=== PATIENT | female | born 1970 ===

== ENCOUNTER 2016-11-15 19:24 | Emergency (ER) | payer OTHER ==
[2016-11-15 20:49] VITALS: BMI 24.7
[2016-11-15] MEDS ORDERED: Sodium Chloride 0.9% 1,000 ML IV STA (20:50)
[2016-11-15 20:54] VITALS: BP 110/75; PULSE 77; RESP 16; TEMP 98.2; O2SAT 99
--- NOTE | 2016-11-15 20:59 | ED PDOC ---
HPI: Abdomen Time Seen by Provider: 11/15/16 20:13 Chief Complaint (Nursing): Abdominal Pain Chief Complaint (Provider): Abdominal Pain History Per: Patient History/Exam Limitations: no limitations Onset/Duration Of Symptoms: Days (ongoing for 3 weeks) Outside of [place] travel?: No Current Symptoms Are (Timing): Still Present Severity: Moderate Location Of Pain/Discomfort: Epigastric. denies: RLQ, LLQ, Suprapubic Associated Symptoms: Nausea. denies: Vomiting, Urinary Symptoms, Other (lower abdominal pain) Exacerbating Factors: Food Additional Complaint(s): Tamika Jarrell is a 45 year old female, with a past medical history of gastritis and gallstones, who presents to the emergency department for the evaluation of epigastric abdominal pain, ongoing for 3 weeks. Pain reportedly worsens with eating. Associated nausea and seasonal allergies are currently present. Denies vomiting, urinary symptoms, or lower abdominal pain. Of note, patient's previous chart was reviewed that shows a past medical history of gastritis, which she is currently not taking any medications for. PMD: none specified Past Medical History Reviewed: Historical Data, Nursing Documentation, Vital Signs Vital Signs: Last Vital Signs Temp 98.2 F 11/15/16 20:48 Pulse 77 11/15/16 20:48 Resp 16 11/15/16 20:48 BP 110/75 11/15/16 20:48 Pulse Ox 99 11/15/16 23:55 - Medical History PMH: Gastritis, Gall Bladder Disease (gallstones) Denies: Chronic Kidney Disease - Surgical History Surgical History: No Surg Hx - Family History Family History: States: Unknown Family Hx - Home Medications Home Medications: Ambulatory Orders Medication Instructions Recorded Cephalexin [cephalexin] 500 mg PO QID #28 cap 08/21/16 Acetaminophen [Acetaminophen ER] 650 mg PO Q4 #30 tablet.er 11/15/16 Famotidine [Pepcid] 20 mg PO BID PRN #30 tab 11/15/16 Lidocaine 11 each TP DAILY #12 adh..patch 11/15/16 Pantoprazole [Protonix EC Tab] 40 mg PO DAILY #30 ect 11/15/16 - Allergies Allergies/Adverse Reactions: Allergies Allergy/AdvReac Type Severity Reaction Status Date / Time No Known Allergies Allergy Verified 07/06/15 09:13 Review of Systems ROS Statement: Except As Marked, All Systems Reviewed And Found Negative Gastrointestinal: Positive for: Nausea, Abdominal Pain (epigastric; denies lower ). Negative for: Vomiting Genitourinary Female: Negative for: Dysuria, Hematuria Physical Exam - Reviewed Nursing Documentation Reviewed: Yes Vital Signs Reviewed: Yes - Physical Exam Appears: Positive for: Non-toxic, No Acute Distress Head Exam: Positive for: ATRAUMATIC, NORMOCEPHALIC Skin: Positive for: Normal Color, Warm, Dry Eye Exam: Positive for: EOMI, PERRL, Conjunctival injection, Other (watery eyes) Cardiovascular/Chest: Positive for: Regular Rate, Rhythm. Negative for: Murmur Respiratory: Positive for: Normal Breath Sounds. Negative for: Respiratory Distress Gastrointestinal/Abdominal: Positive for: Normal Exam, Soft, Tenderness ( epigastric). Negative for: Guarding, Rebound Back: Positive for: Normal Inspection. Negative for: L CVA Tenderness, R CVA Tenderness Neurologic/Psych: Positive for: Alert, Oriented - Laboratory Results Result Diagrams: 11/15/16 21:48 11/15/16 21:48 - ECG O2 Sat by Pulse Oximetry: 99 (RA) Pulse Ox Interpretation: Normal Medical Decision Making Medical Decision Makin:13 Initial Impression: Gastritis, gallstones flareup Initial Plan: * Gallbladder & Pancreas Ultrasound * Complete Blood Count * Comprehensive Metabolic Panel * Lipase * Urine Dip * Urine * Sodium Chloride 0.9% 1,000 ml IV at 500 mls/hr * Protonix 40 mg IVP * Reglan 10 mg IVP * Reevaluation 2343: US impression: Stone impacted in the gallbladder neck. Upper normal gallbladder wall thickness. Correlation for cholecystitis recommended. Please note that a similar sized stone was seen in the gallbladder on CT dated August 25, 2015, however that CT did not show definite gallbladder wall thickening. Common bile duct 4 mm which is within normal limits. 2353: Patient feeling much better and stable for d/c. Patient no longer complaining of abdominal pain but states she has some muscular cramps in her back. Recommended lidocaine patch and tylenol as needed. Will put patient back on PPI and pepcid for gastritis. Informed patient of results of US report and instructed to f/u in clinic in 1-2 days or return to the ED with worsening of symptoms, vomiting, fever, or other concerning symptoms. Scribe Attestation: Documented by Flex Woods, acting as a scribe for Osbaldo Ziegler MD. Provider Scribe Attestation: All medical record entries made by the Scribe were at my direction and personally dictated by me. I have reviewed the chart and agree that the record accurately reflects my personal performance of the history, physical exam, medical decision making, and the department course for this patient. I have also personally directed, reviewed, and agree with the discharge instructions and disposition. Disposition - Clinical Impression Clinical Impression: Gastritis - Patient ED Disposition Is Patient to be Admitted: No Counseled Patient/Family Regarding: Studies Performed, Diagnosis, Need For Followup, Rx Given - Disposition Referrals: [facility] [Outside] Disposition: Routine/Home Disposition Time: 23:55 Condition: STABLE Prescriptions: Acetaminophen [Acetaminophen ER] 650 mg PO Q4 #30 tablet.er Famotidine [Pepcid] 20 mg PO BID PRN #30 tab PRN Reason: Abdominal Pain Lidocaine 11 each TP DAILY #12 adh..patch Pantoprazole [Protonix EC Tab] 40 mg PO DAILY #30 ect Instructions: Gastritis (ED), Muscle Spasm (ED) Print Language: INDIAN
[2016-11-15 21:53] LABS: BASO % 0.3 % (0.0-2.0); EOS # 0.2 K/uL (0.0-0.7); EOS % 2.6 % (0.0-4.0); LYMPH % 31.7 % (20.0-40.0); MEAN CELL VOLUME 90.1 fl (81.0-99.0); MEAN CORPUSCULAR HEMOGLOBIN 30.1 pg (27.0-31.0); MEAN CORPUSCULAR HGB CONC 33.4 g/dL (33.0-37.0); MEAN PLATELET VOLUME 8.6 fl (7.2-11.7); MONO # 0.3 K/uL (0.0-0.8); NEUT # 3.8 K/uL (1.8-7.0); NEUT % 60.4 % (50.0-75.0); RED CELL DISTRIBUTION WIDTH 12.9 % (11.5-14.5); WHITE BLOOD COUNT 6.3 K/uL (4.8-10.8)
[2016-11-15 22:03] LABS: ALB/GLOB RATIO 1.3 (1.0-2.1); ALKALINE PHOSPHATASE 64 U/L (38-126); ALT/SGPT 27 U/L (9-52); AST/SGOT 26 U/L (14-36); BILIRUBIN,TOTAL 0.5 mg/dl (0.2-1.3); BLOOD UREA NITROGEN 5 mg/dl (7-17); CALCIUM 9.5 mg/dL (8.4-10.2); CARBON DIOXIDE 25 mmol/L (22-30); CHLORIDE 104 mmol/L (98-107); GFR AFRICAN-AMERICAN > 60; GLUCOSE,RANDOM 111 mg/dL (65-105); LIPASE 66 U/L (23-300); POTASSIUM 3.6 MMOL/L (3.6-5.0); SODIUM 141 mmol/l (132-148); TOTAL PROTEIN 8.4 G/DL (6.3-8.2)
--- NOTE | 2016-11-15 23:44 | US ---
EXAM: US Abdomen Limited, Right Upper Quadrant CLINICAL HISTORY: 45 years old, female; Pain; Abdominal pain; Epigastric; Additional info: Epig pain, HX of gallstones TECHNIQUE: Real-time ultrasound of the right upper quadrant with image documentation. EXAM DATE/TIME: Exam ordered 11/15/2016 8:50 PM COMPARISON: CT - ABD PELVIS W/O PO OR IV CONT 08/25/2015 4:52:08 AM FINDINGS: Liver: Liver measures 14.9 cm. No intrahepatic bile duct dilation. Gallbladder: Gallbladder wall is 3 mm which is upper limit of normal. There is a gallstone in the neck of the gallbladder which is "almost non-mobile" as per system technologist to visualize the finding in real-time, this stone measures approximately 2 cm. Common bile duct: 4 mm common bile duct which is within normal limits. No stones. No dilation. Pancreas: Included portions of the pancreas with no apparent acute pathology. Right kidney: Right kidney measures 11.5 x 3.9 x 3.9 cm. No stones. No hydronephrosis. IMPRESSION: Stone impacted in the gallbladder neck. Upper normal gallbladder wall thickness. Correlation for cholecystitis recommended. Please note that a similar sized stone was seen in the gallbladder on CT dated August 25, 2015, however that CT did not show definite gallbladder wall thickening. Common bile duct 4 mm which is within normal limits.
== END 2016-11-16 00:10 | disposition home or self-care (01) ==
LOC: H.ER 19:24
DX: R10.13 Epigastric pain (principal); R11.0 Nausea

== ENCOUNTER 2016-11-17 18:28 | Emergency (ER) | payer OTHER ==
[2016-11-17 18:29] VITALS: BMI 24.7
[2016-11-17 18:46] VITALS: BP 129/78; RESP 19; TEMP 98.4; O2SAT 100
--- NOTE | 2016-11-17 19:25 | ED PDOC ---
HPI: Chest Pain Time Seen by Provider: 11/17/16 19:06 Chief Complaint (Nursing): Chest Pain Chief Complaint (Provider): Chest Pain History Per: Patient Additional Complaint(s): 45 yo female, no PMH, presents to ED crying and anxious appearing with multiple somatic complaints. Pt reports headache and dizziness for seveal months now, chest pain x 2 days with pain radiating to left arm as well. Pt appears jittery and admits that she is under alot of stress at this time and her brother last year of cancer and she believes she might have it now as well. Past Medical History Reviewed: Nursing Documentation, Vital Signs Vital Signs: Last Vital Signs Temp 98.4 F 11/17/16 18:44 Pulse 74 11/17/16 19:52 Resp 19 11/17/16 18:44 BP 129/78 11/17/16 18:44 Pulse Ox 100 11/17/16 19:25 - Medical History PMH: Gastritis, Gall Bladder Disease (gallstones) Denies: Chronic Kidney Disease - Surgical History Surgical History: No Surg Hx - Family History Family History: States: Other Other Family History: brother of [place] - Living Arrangements Living Arrangements: With Family - Social History Current smoker - smoking cessation education provided: No Alcohol: None Drugs: Denies - Home Medications Home Medications: Ambulatory Orders Medication Instructions Recorded Cephalexin [cephalexin] 500 mg PO QID #28 cap 08/21/16 Acetaminophen [Acetaminophen ER] 650 mg PO Q4 #30 tablet.er 11/15/16 Famotidine [Pepcid] 20 mg PO BID PRN #30 tab 11/15/16 Lidocaine 11 each TP DAILY #12 adh..patch 11/15/16 Pantoprazole [Protonix EC Tab] 40 mg PO DAILY #30 ect 11/15/16 Alprazolam [Xanax] 0.5 mg PO HS #7 tab 11/17/16 - Allergies Allergies/Adverse Reactions: Allergies Allergy/AdvReac Type Severity Reaction Status Date / Time No Known Allergies Allergy Verified 07/06/15 09:13 ANA Risk Score for UA/NSTEMI - ANA Risk Score Age > 64: NO 3 or more CAD Risk Factors: NO Known CAD (Stenosis greater than 50%): NO Aspirin use in past 7 days: NO Severe Angina: NO EKG ST changes greater than 0.5mm: NO Positive Cardiac Marker: NO ANA Score: 0 Risk %: 5% Curb-65 Severity Score - CURB-65 Severity Score Confusion: No Bun >19mg/dl (>7mmol/L): No Respiratory Rate greater than/equal to 30: No Systolic BP <90 or Diastolic BP less than/equal 60mmHg: No Age >64: No Curb-65 Score: 0 Percentage 30-day mortality: 0.6% Wells Criteria for PE - Wells Criteria for Pulmonary Embolism Clinical Signs and Symptoms of DVT: No P.E is #1 Diagnosis, or Equally Likely: No Heart Rate >100: No Immobilization at least 3 days;Surgery previous 4 weeks: No Previous, objectively diagnosed PE or DVT: No Hemoptysis: No Malignancy w/treatment within 6 months, or palliative: No Total Score: 0 Review of Systems ROS Statement: Except As Marked, All Systems Reviewed And Found Negative Cardiovascular: Positive for: Chest Pain Respiratory: Positive for: Shortness of Breath Neurological: Positive for: Headache, Dizziness Physical Exam - Reviewed Nursing Documentation Reviewed: Yes Vital Signs Reviewed: Yes - Physical Exam Appears: Positive for: Well, Non-toxic, No Acute Distress Head Exam: Positive for: ATRAUMATIC, NORMAL INSPECTION, NORMOCEPHALIC Skin: Positive for: Normal Color, Warm, DRY Eye Exam: Positive for: EOMI, Normal appearance, PERRL ENT: Positive for: Normal ENT Inspection Neck: Positive for: Normal, Painless ROM Cardiovascular/Chest: Positive for: Regular Rate, Rhythm Respiratory: Positive for: CNT, Normal Breath Sounds Gastrointestinal/Abdominal: Positive for: Normal Exam, Bowel Sounds, Soft Back: Positive for: Normal Inspection Extremity: Positive for: Normal ROM Neurologic/Psych: Positive for: Alert, Oriented - Laboratory Results Result Diagrams: 11/17/16 20:00 11/17/16 20:00 - ECG O2 Sat by Pulse Oximetry: 100 Medical Decision Making Medical Decision Making: EKG interpreted and cleared by ED MD Head CT (-) CXR (-) labs resulted and reviewed with Pt who demonstrated full understanding Weigher Bulker spoke to Pt about stress and anxiety and advised crisis evel; however, Pt declined. Pt denied homicidal or suicidal ideations. Crisis presented to give Pt options for outpt therapy as well. Pt given Xanax PO while in ED and rpeorts feeling better after meds. Pt stable for discharge at this time Advised to follow up outpt and return to ED with any concerns. Disposition - Clinical Impression Clinical Impression: Chest pain, Anxiety - Patient ED Disposition Is Patient to be Admitted: No - Disposition Disposition: Routine/Home Disposition Time: 22:42 Condition: STABLE Prescriptions: Alprazolam [Xanax] 0.5 mg PO HS #7 tab Instructions: Anxiety (ED) Forms: [employer] (Telugu) Print Language: [place] ISLANDER
[2016-11-17 20:01] VITALS: PULSE 74
[2016-11-17 20:19] LABS: BASO % 0.4 % (0.0-2.0); EOS # 0.1 K/uL (0.0-0.7); EOS % 1.4 % (0.0-4.0); HEMATOCRIT 39.5 % (34.0-47.0); LYMPH # 2.2 K/uL (1.0-4.3); MEAN CELL VOLUME 89.2 fl (81.0-99.0); MEAN CORPUSCULAR HGB CONC 33.6 g/dL (33.0-37.0); MEAN PLATELET VOLUME 8.4 fl (7.2-11.7); MONO # 0.3 K/uL (0.0-0.8); MONO % 5.5 % (0.0-10.0); NEUT # 3.4 K/uL (1.8-7.0); NEUT % 56.7 % (50.0-75.0); RED CELL DISTRIBUTION WIDTH 12.8 % (11.5-14.5)
[2016-11-17 20:32] LABS: ALB/GLOB RATIO 1.4 (1.0-2.1); ALKALINE PHOSPHATASE 62 U/L (38-126); ALT/SGPT 30 U/L (9-52); AST/SGOT 24 U/L (14-36); BILIRUBIN,TOTAL 0.9 mg/dl (0.2-1.3); BLOOD UREA NITROGEN 6 mg/dl (7-17); CALCIUM 9.7 mg/dL (8.4-10.2); CARBON DIOXIDE 25 mmol/L (22-30); CHLORIDE 103 mmol/L (98-107); GFR AFRICAN-AMERICAN > 60; GLUCOSE,RANDOM 109 mg/dL (65-105); POTASSIUM 3.7 MMOL/L (3.6-5.0); SODIUM 140 mmol/l (132-148); TOTAL PROTEIN 8.2 G/DL (6.3-8.2)
--- NOTE | 2016-11-17 21:04 | CT ---
EXAM: CT Head Without Intravenous Contrast CLINICAL HISTORY: 45 years old, female; Signs and symptoms; Numbness / parasthesia; Left; Additional info: Upper extremity numbness, headache TECHNIQUE: Axial computed tomography images of the head/brain without intravenous contrast. This CT exam was performed using one or more of the following dose reduction techniques: automated exposure control, adjustment of the mA and/or kV according to patient size, and/or use of iterative reconstruction technique. Coronal and sagittal reformatted images were created and reviewed. EXAM DATE/TIME: 11/17/2016 8:34 PM COMPARISON: There are no prior studies for comparison. FINDINGS: Brain: Ventricles are normal in size and configuration. There is no midline shift. There are no intra-axial or extra-axial mass lesions or areas of hemorrhage. There are no abnormal fluid collections. Kelsey-white differentiation is maintained. Ventricles: See above. Bones: Cranial vault is intact. Soft tissues: unremarkable Sinuses: There is no acute sinusitis. Ears and mastoids: Middle ears and mastoids are unremarkable Orbits: Orbital contents are unremarkable. IMPRESSION: No acute intracranial abnormality
--- NOTE | 2016-11-18 09:24 | RAD ---
HISTORY: cp COMPARISON: Comparison made with prior study 07/25/2016 TECHNIQUE: Chest PA and lateral FINDINGS: LUNGS: No acute infiltrates Multiple calcified densities is again seen in the right upper lung field. There may also be a few tiny calcific densities left upper lobe. Findings probably represent sequela of prior exposure to granulomatous disease process. Clinical correlation recommended. . PLEURA: No significant pleural effusion identified. No pneumothorax apparent. CARDIOVASCULAR: Normal. OSSEOUS STRUCTURES: No significant abnormalities. VISUALIZED UPPER ABDOMEN: Normal. OTHER FINDINGS: None. IMPRESSION: No acute infiltrates. Multiple calcified densities is again seen in the right upper lung field. There may also be a few tiny calcific densities left upper lobe. Findings probably represent sequela of prior exposure to granulomatous disease process. Clinical correlation recommended. .
== END 2016-11-17 22:25 | disposition home or self-care (01) ==
LOC: H.ER 18:28
DX: R07.9 Chest pain, unspecified (principal); F41.9 Anxiety disorder, unspecified; R20.0 Anesthesia of skin; R51 Headache

== ENCOUNTER 2017-01-10 21:59 | Emergency (ER) | payer OTHER ==
[2017-01-10 21:59] VITALS: BMI 24.7
[2017-01-10 22:10] VITALS: BP 122/80; PULSE 75; RESP 16; TEMP 99; O2SAT 100
--- NOTE | 2017-01-10 23:14 | ED PDOC ---
HPI: General Adult Time Seen by Provider: 01/10/17 22:19 Chief Complaint (Nursing): Headache Chief Complaint (Provider): Anxious, depression History Per: Patient History/Exam Limitations: no limitations Onset/Duration Of Symptoms: Persistent Have you had recent travel within the past 21 days to any of the following countries: [place], [place], [place] or [place]?: No Current Symptoms Are (Timing): Still Present Additional Complaint(s): The patient is a 46yo female, past medical history of cholelithiasis, presents to the ED for evaluation of depression and anxiety, present for the past three months. Patient reports she has been crying all day and her eyes have been red; she reports associated heaviness in the front of her head as well as chest heaviness. Patient reports she lost her brother to cancer last year and has been upset since then but feels worse for the past 3 months. She additionally states she visited her psychologist for a session earlier today with no relief of her symptoms. Patient reports she has been unable to sleep and has had no appetite. She denies any suicidal or homicidal ideation. Patient offers no additional medical complaints. Past Medical History Reviewed: Historical Data, Nursing Documentation, Vital Signs Vital Signs: Last Vital Signs Temp 99.0 F 01/10/17 22:08 Pulse 75 01/10/17 22:08 Resp 16 01/10/17 22:08 BP 122/80 01/10/17 22:08 Pulse Ox 100 01/11/17 02:33 - Medical History PMH: Depression, Gastritis, Gall Bladder Disease (gallstones) Denies: Chronic Kidney Disease - Surgical History Surgical History: No Surg Hx - Family History Family History: States: Unknown Family Hx - Home Medications Home Medications: Ambulatory Orders Medication Instructions Recorded Cephalexin [cephalexin] 500 mg PO QID #28 cap 08/21/16 Acetaminophen [Acetaminophen ER] 650 mg PO Q4 #30 tablet.er 11/15/16 Famotidine [Pepcid] 20 mg PO BID PRN #30 tab 11/15/16 Lidocaine 11 each TP DAILY #12 adh..patch 11/15/16 Pantoprazole [Protonix EC Tab] 40 mg PO DAILY #30 ect 11/15/16 Alprazolam [Xanax] 0.5 mg PO HS #7 tab 11/17/16 - Allergies Allergies/Adverse Reactions: Allergies Allergy/AdvReac Type Severity Reaction Status Date / Time No Known Allergies Allergy Verified 07/06/15 09:13 Review of Systems ROS Statement: Except As Marked, All Systems Reviewed And Found Negative Eyes: Positive for: Redness Cardiovascular: Positive for: Other (chest heaviness) Psych: Negative for: Suicidal ideation Physical Exam - Reviewed Nursing Documentation Reviewed: Yes Vital Signs Reviewed: Yes - Physical Exam Appears: Positive for: Well, Non-toxic, Uncomfortable (patient is psychological distress, actively crying ut easily consolable; anxious appearing) Head Exam: Positive for: ATRAUMATIC, NORMAL INSPECTION, NORMOCEPHALIC Skin: Positive for: Normal Color, Warm, DRY Eye Exam: Positive for: EOMI, PERRL, Conjunctival injection (bilateral) Neck: Positive for: Normal, Supple Cardiovascular/Chest: Positive for: Regular Rate, Rhythm Respiratory: Positive for: Normal Breath Sounds. Negative for: Respiratory Distress Neurologic/Psych: Positive for: Alert, Oriented - ECG O2 Sat by Pulse Oximetry: 100 (RA) Pulse Ox Interpretation: Normal Medical Decision Making Medical Decision Making: Time: 2234 Impression: Depression Plan: * Patient medically clear for crisis evaluation Time: 206 Patient seen and evaluated by crisis. Cleared by Dr Vazquez for discharge Time: [address] Vazquez, patient stable for discharge home. Patient will be provided with instructions for follow up at mental health clinic for further care. Scribe Attestation: Documented by Felipa Bee, acting as a scribe for Jassi Arriaga MD. Provider Scribe Attestation: All medical record entries made by the Scribe were at my direction and personally dictated by me. I have reviewed the chart and agree that the record accurately reflects my personal performance of the history, physical exam, medical decision making, and the department course for this patient. I have also personally directed, reviewed, and agree with the discharge instructions and disposition. Disposition - Clinical Impression Clinical Impression: Depression - Patient ED Disposition Is Patient to be Admitted: No Doctor Will See Patient In The: Office Counseled Patient/Family Regarding: Studies Performed, Diagnosis, Need For Followup - Disposition Referrals: [facility] [Outside] Disposition: Routine/Home Disposition Time: 02:30 Condition: GOOD Additional Instructions: Follow up with your PCP in 2-3 days. Instructions: Depression (ED) Print Language: SINHALA
--- NOTE | 2017-01-11 12:52 | CARD ---
APPROVED REPORT EKG Measurement Heart [id number] <Conclusion> Normal sinus rhythm Normal ECG
== END 2017-01-11 02:52 | disposition home or self-care (01) ==
LOC: H.ER 21:59
DX: F32.9 Major depressive disorder, single episode, unspecified (principal); F41.9 Anxiety disorder, unspecified

== ENCOUNTER 2017-01-25 10:42 | Emergency (ER) | payer SELFPAY ==
[2017-01-25 10:42] VITALS: BMI 24.7
[2017-01-25 11:18] VITALS: BP 98/69; PULSE 73; RESP 20; TEMP 98; O2SAT 97
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
== END 2017-01-25 12:59 | disposition home or self-care (01) ==
LOC: H.ER 10:42
DX: S70.02XA Contusion of left hip, initial encounter (principal); S40.022A Contusion of left upper arm, initial encounter; V03.10XA Pedestrian on foot injured in collision with car, pick-up truck or van in traffic accident, initial encounter; Y92.410 Unspecified street and highway as the place of occurrence of the external cause

== ENCOUNTER 2017-04-02 21:26 | Emergency (ER) | payer SELFPAY ==
[2017-04-02 21:26] VITALS: BMI 24.7
[2017-04-02 21:33] VITALS: BP 127/67; PULSE 77; RESP 16; TEMP 97.8; O2SAT 99
--- NOTE | 2017-04-02 22:29 | ED PDOC ---
HPI: Chest Pain Time Seen by Provider: 04/02/17 21:43 Chief Complaint (Nursing): Chest Pain Chief Complaint (Provider): Left Upper Back Pain and Left sided Chest Pain History Per: Patient History/Exam Limitations: no limitations Onset/Duration Of Symptoms: Other (several weeks) Current Symptoms Are (Timing): Still Present Pain Scale Rating Of: 9 Quality: "Pain" Additional Complaint(s): Tamika Jarrell, a 46 year old female, with a past medical history of hypertension, anxiety, gastritis and depression presents to the ED with several weeks of left sided chest pain and left upper back pain. The patient states the pain is worse with movement. Denies trauma, falls, difficulty breathing, fever, cough, diarrhea and vomiting. Of note: Patient states that she recently went to the termite technician and had blood work done and is currently waiting on the results of her pap smear. PMD: [facility] - Risk Factors TAD Risk Factors: Pos: Hypertension Past Medical History Reviewed: Historical Data, Nursing Documentation, Vital Signs Vital Signs: Last Vital Signs Temp 97.8 F 04/02/17 21:31 Pulse 77 04/02/17 21:31 Resp 16 04/02/17 21:31 BP 127/67 04/02/17 21:31 Pulse Ox 99 04/03/17 00:18 - Medical History PMH: Anxiety, Depression, Gastritis, Gall Bladder Disease (gallstones) Denies: Diabetes, Hepatitis, HIV, HTN, Chronic Kidney Disease, Seizures, Sexually Transmitted Disease - Family History Family History: States: Unknown Family Hx - Social History Current smoker - smoking cessation education provided: No Ex-Smoker (has not smoked in the last 12 months): No Alcohol: None Drugs: Denies - Home Medications Home Medications: Ambulatory Orders Medication Instructions Recorded Cephalexin [cephalexin] 500 mg PO QID #28 cap 08/21/16 Acetaminophen [Acetaminophen ER] 650 mg PO Q4 #30 tablet.er 11/15/16 Famotidine [Pepcid] 20 mg PO BID PRN #30 tab 11/15/16 Lidocaine 11 each TP DAILY #12 adh..patch 11/15/16 Pantoprazole [Protonix EC Tab] 40 mg PO DAILY #30 ect 11/15/16 Alprazolam [Xanax] 0.5 mg PO HS #7 tab 11/17/16 Acetaminophen [Tylenol 325mg tab] 650 mg PO Q4H PRN #10 tab 04/03/17 - Allergies Allergies/Adverse Reactions: Allergies Allergy/AdvReac Type Severity Reaction Status Date / Time No Known Allergies Allergy Verified 07/06/15 09:13 Review of Systems ROS Statement: Except As Marked, All Systems Reviewed And Found Negative Constitutional: Negative for: Fever Cardiovascular: Positive for: Chest Pain (left sided) Respiratory: Negative for: Cough Gastrointestinal: Negative for: Vomiting, Diarrhea Musculoskeletal: Positive for: Back Pain (left upper back) Physical Exam - Reviewed Nursing Documentation Reviewed: Yes Vital Signs Reviewed: Yes - Physical Exam Appears: Positive for: Non-toxic, Uncomfortable Head Exam: Positive for: ATRAUMATIC, NORMAL INSPECTION, NORMOCEPHALIC Skin: Positive for: Normal Color, Warm, Dry. Negative for: Rash Eye Exam: Positive for: Normal appearance, EOMI, PERRL. Negative for: Nystagmus ENT: Positive for: Normal ENT Inspection. Negative for: Nasal Congestion, Tonsillar Exudate, Tonsillar Swelling Neck: Positive for: Normal, Painless ROM, Supple Cardiovascular/Chest: Positive for: Regular Rate, Rhythm, Chest Non Tender ( Reproducible pain to the left chest wall; no open skin; no sign of injury; no hematoma.). Negative for: Tachycardia Respiratory: Positive for: Normal Breath Sounds. Negative for: Rales, Rhonchi, Wheezing, Respiratory Distress Gastrointestinal/Abdominal: Positive for: Normal Exam, Bowel Sounds, Soft. Negative for: Tenderness, Guarding, Rebound Back: Positive for: Normal Inspection, Other (Reproducible pain to the left upper back no sign of injury; no hematoma.). Negative for: L CVA Tenderness, R CVA Tenderness Extremity: Positive for: Normal ROM. Negative for: Tenderness, Pedal Edema, Deformity, Swelling Lymphatic: Positive for: Normal Exam. Negative for: Adenopathy Neurologic/Psych: Positive for: Alert, Oriented, Gait - Laboratory Results Result Diagrams: 04/02/17 22:20 04/02/17 22:24 - ECG O2 Sat by Pulse Oximetry: 99 (RA) Pulse Ox Interpretation: Normal Medical Decision Making Medical Decision Makin Initial Impression: 46 y/o female presenting with muscular chest pain rule out cardiac ideology Initial Plan: * CMP * Troponin * CBC * D-dimer * Chest x-ray * Morphine 2mg IV * Reevaluation 2132 EKG Performed: * Normal Sinus Rhythm at 74 bpm * No ST changes * Normal MT intervals 00:05. Labs are normal. Dimer is normal. CXR shows no acute diseases. Patient in no acute distress and is feeling better. Patient will be discharged home and was instructed to follow up with her PMD or to return if symptoms worsens. Scribe Attestation Documented by Odilia Easley acting as a scribe for Juan Pimentel MD. Provider Attestation All medical record entries made by the Scribe were at my direction and personally dictated by me. I have reviewed the chart and agree that the record accurately reflects my personal performance of the history, physical exam, medical decision making, and the department course for this patient. I have also personally directed, reviewed, and agree with the discharge instructions and disposition. Disposition - Clinical Impression Clinical Impression: Atypical chest pain, Chest wall pain - Patient ED Disposition Is Patient to be Admitted: No Counseled Patient/Family Regarding: Studies Performed, Diagnosis, Need For Followup - Disposition Referrals: [facility] [Outside] [facility] [Outside] Disposition: Routine/Home Disposition Time: 22:50 Condition: IMPROVED Additional Instructions: follow up with your primary doctor in 1-2 days for reevaluation take tylenol as needed for pain return to the ED with any worsening or concerning symptoms. Prescriptions: Acetaminophen [Tylenol 325mg tab] 650 mg PO Q4H PRN #10 tab PRN Reason: Pain, Moderate (4-7) Instructions: Chest Wall Pain (ED) Forms: [employer] ([employer]) (Icelandic) Print Language: DIVEHI
[2017-04-02 22:37] LABS: ALB/GLOB RATIO 1.4 (1.0-2.1); ALKALINE PHOSPHATASE 77 U/L (38-126); ALT/SGPT 37 U/L (9-52); AST/SGOT 33 U/L (14-36); BILIRUBIN,TOTAL 0.8 mg/dl (0.2-1.3); BLOOD UREA NITROGEN 9 mg/dl (7-17); CALCIUM 9.5 mg/dL (8.4-10.2); CARBON DIOXIDE 26 mmol/L (22-30); CHLORIDE 104 mmol/L (98-107); GFR AFRICAN-AMERICAN > 60; GLUCOSE,RANDOM 101 mg/dL (65-105); POTASSIUM 3.5 MMOL/L (3.6-5.0); SODIUM 142 mmol/l (132-148); TOTAL PROTEIN 7.6 G/DL (6.3-8.2)
[2017-04-02 22:45] LABS: WHITE BLOOD COUNT 6.3 K/uL (4.8-10.8)
[2017-04-02 22:46] LABS: BASO % 0.5 % (0.0-2.0); EOS % 1.4 % (0.0-4.0); HEMATOCRIT 36.5 % (34.0-47.0); LYMPH % 33.5 % (20.0-40.0); MEAN CELL VOLUME 88.7 fl (81.0-99.0); MEAN CORPUSCULAR HEMOGLOBIN 30.5 pg (27.0-31.0); MEAN CORPUSCULAR HGB CONC 34.3 g/dL (33.0-37.0); MEAN PLATELET VOLUME 8.4 fl (7.2-11.7); MONO % 7.7 % (0.0-10.0); NEUT # 3.6 K/uL (1.8-7.0); NEUT % 56.9 % (50.0-75.0); NRBC % 0.1 % (0.0-0.0); RED CELL DISTRIBUTION WIDTH 12.6 % (11.5-14.5)
[2017-04-02 22:47] LABS: EOS # 0.1 K/uL (0.0-0.7); LYMPH # 2.1 K/uL (1.0-4.3); MONO # 0.5 K/uL (0.0-0.8)
[2017-04-03] MEDS ORDERED: Potassium Chloride 20 mEq ER Tab PO ONE ×2 (00:09→00:11)
--- NOTE | 2017-04-03 11:05 | RAD ---
HISTORY: Shortness of breath. COMPARISON: 11/17/2016 TECHNIQUE: Chest PA and lateral FINDINGS: LUNGS: Stable fibronodular changes in the right apex. PLEURA: No significant pleural effusion identified. No pneumothorax apparent. CARDIOVASCULAR: No radiographic findings to suggest acute or significant cardiovascular disease. OSSEOUS STRUCTURES: No significant abnormalities. VISUALIZED UPPER ABDOMEN: Normal. OTHER FINDINGS: None. IMPRESSION: No acute findings related to/accounting for the clinical presentation. No significant interval change compared to the prior examination(s).
== END 2017-04-03 00:25 | disposition home or self-care (01) ==
LOC: H.ER 21:26
DX: R07.89 Other chest pain (principal)
CPT/HCPCS: 71020; 80053; 81025; 84484; 85025; 85378; 99285; J2270

== ENCOUNTER 2017-05-16 22:53 | Emergency (ER) | payer SELFPAY ==
[2017-05-16 22:56] VITALS: BMI 26.3
[2017-05-16 22:57] VITALS: BP 115/74; PULSE 83; RESP 16; TEMP 96.9; O2SAT 100
--- NOTE | 2017-05-16 23:21 | ED PDOC ---
HPI: Abdomen Time Seen by Provider: 05/16/17 23:07 Chief Complaint (Nursing): Abdominal Pain Chief Complaint (Provider): Abd pain History Per: Patient History/Exam Limitations: no limitations Onset/Duration Of Symptoms: Days (3), Waxing/Waning Outside of [place] travel?: No Additional Complaint(s): Pt. with abd pain RUQ for 3 days waxing and waning. Nausea, no vomit. No diarrhea, weakness, dysuria, chest pain, dyspnea. Pt. with R back pain radiating from RUQ abd pain. Has gallstones and feels similar. Worse with eating. Past Medical History Reviewed: Nursing Documentation, Vital Signs Vital Signs: Last Vital Signs Temp 96.9 F L 05/16/17 22:57 Pulse 83 05/16/17 22:57 Resp 16 05/16/17 22:57 BP 115/74 05/16/17 22:57 Pulse Ox 100 05/16/17 23:21 - Medical History PMH: Anxiety, Depression, Gastritis, Gall Bladder Disease (gallstones) Denies: Diabetes, Hepatitis, HIV, HTN, Chronic Kidney Disease, Seizures, Sexually Transmitted Disease - Surgical History Surgical History: No Surg Hx - Family History Family History: States: Unknown Family Hx - Living Arrangements Living Arrangements: With Family - Social History Alcohol: None Drugs: Denies - Home Medications Home Medications: Ambulatory Orders Medication Instructions Recorded Cephalexin [cephalexin] 500 mg PO QID #28 cap 08/21/16 Acetaminophen [Acetaminophen ER] 650 mg PO Q4 #30 tablet.er 11/15/16 Famotidine [Pepcid] 20 mg PO BID PRN #30 tab 11/15/16 Lidocaine 11 each TP DAILY #12 adh..patch 11/15/16 Pantoprazole [Protonix EC Tab] 40 mg PO DAILY #30 ect 11/15/16 Alprazolam [Xanax] 0.5 mg PO HS #7 tab 11/17/16 Acetaminophen [Tylenol 325mg tab] 650 mg PO Q4H PRN #10 tab 04/03/17 - Allergies Allergies/Adverse Reactions: Allergies Allergy/AdvReac Type Severity Reaction Status Date / Time No Known Allergies Allergy Verified 07/06/15 09:13 Review of Systems ROS Statement: Except As Marked, All Systems Reviewed And Found Negative Gastrointestinal: Positive for: Nausea, Abdominal Pain Physical Exam - Reviewed Nursing Documentation Reviewed: Yes Vital Signs Reviewed: Yes - Physical Exam Appears: Positive for: Non-toxic, No Acute Distress Head Exam: Positive for: ATRAUMATIC, NORMAL INSPECTION, NORMOCEPHALIC Skin: Positive for: Normal Color, Warm, DRY Eye Exam: Positive for: EOMI, Normal appearance, PERRL ENT: Positive for: Normal ENT Inspection Neck: Positive for: Normal, Painless ROM Cardiovascular/Chest: Positive for: Regular Rate, Rhythm Respiratory: Positive for: CNT, Normal Breath Sounds Gastrointestinal/Abdominal: Positive for: Bowel Sounds, Soft, Tenderness (RUQ). Negative for: Guarding, Rebound Back: Positive for: Normal Inspection. Negative for: L CVA Tenderness, R CVA Tenderness Extremity: Positive for: Normal ROM. Negative for: Tenderness, Pedal Edema Neurologic/Psych: Positive for: Alert, Oriented - ECG O2 Sat by Pulse Oximetry: 100 Pulse Ox Interpretation: Normal - Progress ED Course And Treament: 1148: Stable. Dr. Olson to fu on labs and imaging. Disposition - Clinical Impression Clinical Impression: Abdominal pain - Patient ED Disposition Is Patient to be Admitted: Transfer of Care - Disposition Disposition: Transfer of Care Disposition Time: 23:49 Condition: STABLE Patient Signed Over To: Umair Olson
[2017-05-16] MEDS: Sodium Chloride 0.9% 1,000 ML IV STA (23:38)
--- NOTE | 2017-05-17 00:05 | ED PDOC ---
- Laboratory Results Result Diagrams: 05/16/17 23:30 05/16/17 23:30 - ECG O2 Sat by Pulse Oximetry: 100 Medical Decision Making Medical Decision Makin Patient signed out to me from Dr. Zurita pending US, labs, and re-evaluation. 0012 US FINDINGS Liver: Normal echogenicity. No mass. No intrahepatic bile duct dilatation. Gallbladder: Large gallstone. No wall thickening. No pericholecystic fluid. No sonographic Russell's sign. Common bile duct: No dilatation. No stones. Pancreas: Unremarkable as visualized. Right kidney: Normal echogenicity. No hydronephrosis. IMPRESSION: 1. Cholelithiasis. 0100 Labs reviewed: no clinically significant abnormalities. US results explained to patient and spouse at bedside. Spouse inquired why patient does not need to immediately have gallbladder surgery. Provider explained US and lab work do not constitute acute need for cholecystectomy. Patient does already have a scheduled surgical clinic appointment with Dr. Hdoge in 1 week. Provider encouraged patient to keep appointment and advised patient to return to ED if she experiences worsening pain. Patient declined further pain medication in ED as she is averse to morphine. Rx for Ultram and Zofran given. Provider discussed patient's needed dietary changes. Dx: cholelithiasis Condition: Stable Scribe Attestation: Documented by Virgen Mendoza acting as a scribe for Umair Olson MD. Scribe Attestation: All medical record entries made by the Scribe were at my direction and personally dictated by me. I have reviewed the chart and agree that the record accurately reflects my personal performance of the history, physical exam, medical decision making, and the department course for this patient. I have also personally directed, reviewed, and agree with the discharge instructions and disposition. Disposition - Clinical Impression Clinical Impression: Cholelithiasis - POA Present On Arrival: None - Disposition Disposition: Routine/Home Disposition Time: 01:00 Condition: STABLE Additional Instructions: Please follow up with Dr Hodge as scheduled Prescriptions: Ondansetron ODT [Zofran ODT] 4 mg PO Q6 PRN #16 odt PRN Reason: Nausea/Vomiting traMADol [Ultram] 50 mg PO Q6 PRN #12 tab PRN Reason: abdominal pain Instructions: Gallstones (ED) Forms: [employer] (Moldovan) Print Language: TUVALUAN
--- NOTE | 2017-05-17 00:13 | US ---
EXAM: US Abdomen Limited, Right Upper Quadrant CLINICAL HISTORY: 46 years old, female; Pain; Abdominal pain; Epigastric; Additional info: Gallstone eval TECHNIQUE: Real-time ultrasound of the right upper quadrant with image documentation. COMPARISON: CT - ABD PELVIS W/O PO OR IV CONT 2015-08-25 04:52 FINDINGS: Liver: Normal echogenicity. No mass. No intrahepatic bile duct dilatation. Gallbladder: Large gallstone. No wall thickening. No pericholecystic fluid. No sonographic Russell's sign. Common bile duct: No dilatation. No stones. Pancreas: Unremarkable as visualized. Right kidney: Normal echogenicity. No hydronephrosis. IMPRESSION: 1. Cholelithiasis.
[2017-05-17 00:27] LABS: BASO % 0.4 % (0.0-2.0); EOS # 0.1 K/uL (0.0-0.7); EOS % 1.1 % (0.0-4.0); HEMATOCRIT 37.5 % (34.0-47.0); LYMPH # 2.3 K/uL (1.0-4.3); MEAN CELL VOLUME 89.5 fl (81.0-99.0); MEAN CORPUSCULAR HEMOGLOBIN 29.8 pg (27.0-31.0); MEAN CORPUSCULAR HGB CONC 33.2 g/dL (33.0-37.0); MEAN PLATELET VOLUME 9.2 fl (7.2-11.7); MONO # 0.7 K/uL (0.0-0.8); MONO % 7.1 % (0.0-10.0); NEUT # 6.2 K/uL (1.8-7.0); NEUT % 66.4 % (50.0-75.0); RED CELL DISTRIBUTION WIDTH 12.9 % (11.5-14.5); WHITE BLOOD COUNT 9.3 K/uL (4.8-10.8)
[2017-05-17 00:36] LABS: ALB/GLOB RATIO 1.3 (1.0-2.1); ALKALINE PHOSPHATASE 68 U/L (38-126); ALT/SGPT 33 U/L (9-52); AST/SGOT 23 U/L (14-36); BILIRUBIN,TOTAL 0.8 mg/dl (0.2-1.3); BLOOD UREA NITROGEN 7 mg/dl (7-17); CALCIUM 9.2 mg/dL (8.4-10.2); CARBON DIOXIDE 23 mmol/L (22-30); CHLORIDE 106 mmol/L (98-107); GFR AFRICAN-AMERICAN > 60; GLUCOSE,RANDOM 100 mg/dL (65-105); LIPASE 76 U/L (23-300); SODIUM 141 mmol/l (132-148)
[2017-05-17] MEDS ORDERED: Oxycodone/Acetaminophen 5/325 mg Tab ONE (01:06)
[2017-05-17] MEDS: Oxycodone/Acetaminophen 5/325 mg Tab PO STA (01:14)
== END 2017-05-17 01:18 | disposition home or self-care (01) ==
LOC: H.ER 22:53
DX: K80.20 Calculus of gallbladder without cholecystitis without obstruction (principal); F32.9 Major depressive disorder, single episode, unspecified; F41.9 Anxiety disorder, unspecified
CPT/HCPCS: 76705; 80053; 81025; 83690; 85025; 96374; 99283; J1885; J7040

== ENCOUNTER 2017-06-26 18:58 | Emergency (ER) | payer SELFPAY ==
[2017-06-26 18:58] VITALS: BMI 26.3
[2017-06-26 19:10] VITALS: BP 121/55; PULSE 79; RESP 20; TEMP 98.8; O2SAT 99
[2017-06-26 19:46] LABS: URINE BILIRUBIN NEGATIVE (NEGATIVE); URINE BLOOD NEGATIVE (NEGATIVE); URINE CLARITY CLEAR (Clear); URINE COLOR COLORLESS (YELLOW); URINE GLUCOSE (UA) NEG (Normal); URINE LEUKOCYTE ESTERASE NEG Leu/uL (Negative); URINE NITRATE NEGATIVE (NEGATIVE); URINE PROTEIN NEGATIVE (NEGATIVE); URINE UROBILINOGEN 0.2-1.0 mg/dL (0.2-1.0)
[2017-06-26] MEDS ORDERED: Sodium Chloride 0.9% 1,000 ML IV STA (19:53)
--- NOTE | 2017-06-26 19:57 | ED PDOC ---
HPI: Abdomen Time Seen by Provider: 06/26/17 19:14 Chief Complaint (Nursing): Abdominal Pain Chief Complaint (Provider): Abdominal Pain History Per: Patient History/Exam Limitations: no limitations Onset/Duration Of Symptoms: Days (x 3) Current Symptoms Are (Timing): Still Present Location Of Pain/Discomfort: RUQ Associated Symptoms: Nausea, Vomiting, Loss Of Appetite Additional Complaint(s): 46 year old female with a history of gall stones, who presents today with 3 day history of right upper quadrant pain radiating to the lower back. States pain is consistent with previous episodes of gall bladder pain. States she is taking ultram with no relief. Patient reports nausea, vomiting, and poor appetite. Denies fever. She has a preexisting appointment with Dr. Hodge in August. PMD: [facility] Past Medical History Reviewed: Historical Data, Nursing Documentation, Vital Signs Vital Signs: Last Vital Signs Temp 98.8 F 06/26/17 19:06 Pulse 79 06/26/17 19:06 Resp 20 06/26/17 19:06 BP 121/55 L 06/26/17 19:06 Pulse Ox 99 06/26/17 21:46 - Medical History PMH: Anxiety, Depression, Gastritis, Gall Bladder Disease (gallstones) Denies: Diabetes, Hepatitis, HIV, HTN, Chronic Kidney Disease, Seizures, Sexually Transmitted Disease - Surgical History Surgical History: No Surg Hx - Family History Family History: States: Unknown Family Hx - Home Medications Home Medications: Ambulatory Orders Medication Instructions Recorded Cephalexin [cephalexin] 500 mg PO QID #28 cap 08/21/16 Acetaminophen [Acetaminophen ER] 650 mg PO Q4 #30 tablet.er 11/15/16 Famotidine [Pepcid] 20 mg PO BID PRN #30 tab 11/15/16 Lidocaine 11 each TP DAILY #12 adh..patch 11/15/16 Pantoprazole [Protonix EC Tab] 40 mg PO DAILY #30 ect 11/15/16 Alprazolam [Xanax] 0.5 mg PO HS #7 tab 11/17/16 Acetaminophen [Tylenol 325mg tab] 650 mg PO Q4H PRN #10 tab 04/03/17 Ondansetron ODT [Zofran ODT] 4 mg PO Q6 PRN #16 odt 05/17/17 traMADol [Ultram] 50 mg PO Q6 PRN #12 tab 05/17/17 Ondansetron ODT [Zofran ODT] 4 mg PO Q6 PRN #12 odt 06/26/17 oxyCODONE/Acetaminophen [Percocet 1 tab PO Q6 PRN #10 tab 06/26/17 5/325 mg Tab] - Allergies Allergies/Adverse Reactions: Allergies Allergy/AdvReac Type Severity Reaction Status Date / Time No Known Allergies Allergy Verified 07/06/15 09:13 Review of Systems ROS Statement: Except As Marked, All Systems Reviewed And Found Negative Constitutional: Negative for: Fever Gastrointestinal: Positive for: Nausea, Vomiting, Abdominal Pain, Other (poor appetite). Negative for: Diarrhea Physical Exam - Reviewed Nursing Documentation Reviewed: Yes Vital Signs Reviewed: Yes - Physical Exam Appears: Positive for: Uncomfortable Head Exam: Positive for: ATRAUMATIC, NORMOCEPHALIC Skin: Positive for: Normal Color, Warm, Dry Eye Exam: Positive for: EOMI, PERRL, Other (Bilateral pterygium of the eyes) Neck: Positive for: Normal, Painless ROM, Supple Cardiovascular/Chest: Positive for: Regular Rate, Rhythm. Negative for: Murmur Respiratory: Positive for: Normal Breath Sounds. Negative for: Accessory Muscle Use, Respiratory Distress Gastrointestinal/Abdominal: Positive for: Soft, Tenderness (at the right upper quadrant), Other (+ Cypress sign) Back: Positive for: Normal Inspection. Negative for: L CVA Tenderness, R CVA Tenderness, Vertebral Tenderness Extremity: Positive for: Normal ROM. Negative for: Pedal Edema, Deformity Neurologic/Psych: Positive for: Alert, Oriented. Negative for: Motor/Sensory Deficits - Laboratory Results Result Diagrams: 06/26/17 19:39 06/26/17 19:39 - ECG O2 Sat by Pulse Oximetry: 99 (RA) Pulse Ox Interpretation: Normal Medical Decision Making Medical Decision Making: Time: : Initial Impression: 46 year old female with RUQ pain in setting of known gall stones Initial Plan: --Urine --Urine dipstick --Urinalysis --CMP --Lipase --CBC w/ differential --NS IV 1000 ml at 1000 mls/hr --Toradol 15 mg IVP --Zofran 4 mg IV --US Abdomen Limited --Reevaluation Time: 21:02 US Abdomen: FINDINGS: Liver: Normal echogenicity. No mass. No intrahepatic bile duct dilatation. Gallbladder: Gallstones. No definite wall thickening. No pericholecystic fluid. No sonographic Russell's sign. Common bile duct: No dilatation. No stones. Pancreas: Unremarkable as visualized. Right kidney: Normal echogenicity. No hydronephrosis. IMPRESSION: 1. Cholelithiasis. Upon reevaluation, patient reports improvement in symptoms and is medically stable. Will discharge home with prescriptions for Zofran and Percocet. I reinforced the importance of following up with the surgical clinic as scheduled. Also advised patient to follow up with the clinic, where she sees Dr. Graham, for possible preponement of her existing surgical problem. There is agreement to discharge plan. Return if symptoms persist or worsen. Scribe Attestation: Documented by Brenna Borjas, acting as a scribe for Umair Olson MD Provider Scribe Attestation: All medical record entries made by the Scribe were at my direction and personally dictated by me. I have reviewed the chart and agree that the record accurately reflects my personal performance of the history, physical exam, medical decision making, and the department course for this patient. I have also personally directed, reviewed, and agree with the discharge instructions and disposition. Disposition - Clinical Impression Clinical Impression: Cholelithiasis - Patient ED Disposition Is Patient to be Admitted: No Counseled Patient/Family Regarding: Studies Performed, Diagnosis, Need For Followup, Rx Given - Disposition Referrals: Cinthya Murphy MD [Resident] - Disposition: Routine/Home Disposition Time: 21:09 Condition: STABLE Prescriptions: Ondansetron ODT [Zofran ODT] 4 mg PO Q6 PRN #12 odt PRN Reason: Nausea/Vomiting oxyCODONE/Acetaminophen [Percocet 5/325 mg Tab] 1 tab PO Q6 PRN #10 tab PRN Reason: abdominal pain Instructions: Gallstones (ED) Forms: [employer] (Czech) Print Language: JAPANESE
[2017-06-26 20:03] LABS: BASO # 0.1 K/uL (0.0-0.2); BASO % 0.8 % (0.0-2.0); EOS % 0.8 % (0.0-4.0); HEMOGLOBIN 13.7 g/dL (12.0-16.0); LYMPH # 2.1 K/uL (1.0-4.3); LYMPH % 34.2 % (20.0-40.0); MEAN CELL VOLUME 89.3 fl (81.0-99.0); MEAN CORPUSCULAR HEMOGLOBIN 29.7 pg (27.0-31.0); MEAN CORPUSCULAR HGB CONC 33.2 g/dL (33.0-37.0); MEAN PLATELET VOLUME 8.4 fl (7.2-11.7); MONO # 0.4 K/uL (0.0-0.8); MONO % 6.4 % (0.0-10.0); NEUT # 3.5 K/uL (1.8-7.0); NEUT % 57.8 % (50.0-75.0); NRBC % 0.4 % (0.0-0.0); RBC 4.61 Mil/uL (3.80-5.20); WHITE BLOOD COUNT 6.1 K/uL (4.8-10.8)
[2017-06-26 20:15] LABS: CALCIUM 9.7 mg/dL (8.4-10.2); GFR AFRICAN-AMERICAN > 60; GFR NON-AFRICAN AMERICAN > 60; LIPASE 67 U/L (23-300)
[2017-06-26 20:37] LABS: ALB/GLOB RATIO 1.3 (1.0-2.1); ALT/SGPT 42 U/L (9-52); AST/SGOT 35 U/L (14-36); BLOOD UREA NITROGEN 8 mg/dl (7-17)
--- NOTE | 2017-06-26 21:02 | US ---
EXAM: US Abdomen Limited, Right Upper Quadrant CLINICAL HISTORY: 46 years old, female; Pain; Abdominal pain; Epigastric; Additional info: Ruq pain TECHNIQUE: Real-time ultrasound of the right upper quadrant with image documentation. COMPARISON: US - ABDOMEN LIMITED 2017-05-16 23:40 FINDINGS: Liver: Normal echogenicity. No mass. No intrahepatic bile duct dilatation. Gallbladder: Gallstones. No definite wall thickening. No pericholecystic fluid. No sonographic Russell's sign. Common bile duct: No dilatation. No stones. Pancreas: Unremarkable as visualized. Right kidney: Normal echogenicity. No hydronephrosis. IMPRESSION: 1. Cholelithiasis.
[2017-06-26] MEDS ORDERED: Alum-Mag Hydrox-Simethicone Susp (30 mL) PO STA (21:19)
== END 2017-06-26 22:30 | disposition home or self-care (01) ==
LOC: H.ER 18:58
DX: K80.20 Calculus of gallbladder without cholecystitis without obstruction (principal); Z36.9 Encounter for antenatal screening, unspecified; Z86.59 Personal history of other mental and behavioral disorders
CPT/HCPCS: 76705; 80053; 81003; 81025; 83690; 85025; 99283; J1885; J2405; J7040

== ENCOUNTER 2017-07-30 08:50 | Observation (INO) | payer SELFPAY ==
[2017-07-30] MEDS ORDERED: Bupivacaine 0.5% Inj(30mL) ONE (10:56)
[2017-07-30] MEDS ORDERED: Lactated Ringer's 1,000 ML IV ONE ×2 (11:20→14:00)
[2017-07-30] MEDS ORDERED: Rocuronium 10 mg/ml (5 ml) ONE (11:22)
[2017-07-30] MEDS ORDERED: Midazolam 2 MG/2 ML VIAL ONE (11:22)
[2017-07-30] MEDS ORDERED: Succinylcholine 200 mg/10 ml Inj IV ONE (11:23)
[2017-07-30] MEDS ORDERED: Oxycodone/Acetaminophen 5/325 mg Tab PO PRN (12:51)
--- NOTE | 2017-07-30 12:51 | PCM.SURG1 ---
Surgeon's Initial Post Op Note - Surgeon's Notes Surgeon: Dr Hodge Commercial Driver: Dr Marsh PGY3, Dr Nunes PGY2 Type of Anesthesia: General Endo Pre-Operative Diagnosis: chronic cholecystitis Operative Findings: see report Post-Operative Diagnosis: as above Operation Performed: laparoscopic cholecystectomy Specimen/Specimens Removed: gallbladder Estimated Blood Loss: EBL {In ML}: 20 Blood Products Given: N/A Drains Used: No Drains Post-Op Condition: Good Date of Surgery/Procedure: 07/30/17 Time of Surgery/Procedure: 12:50
--- NOTE | 2017-07-30 12:54 | CP.SDSHP ---
Same Day Surgery H & P - History Proposed Procedure: Laparoscopic cholecystectomy Pre-Op Diagnosis: symptomatic cholelithiasis - Previous Medical/Surgical History Misc: Other (Gastritis) Pain: 3. Comments: anxiety, depression Previous Surgical History: denies - Allergies Allergies: Allergies No Known Allergies Allergy (Verified 07/30/17 09:05) - Physical Exam General Appearance: well, non-toxic Vital Signs: Vital Signs 07/30/17 07/30/17 09:28 09:37 Temperature 97.9 F Pulse Rate 79 79 Respiratory 18 Rate Blood Pressure 108/74 O2 Sat by Pulse 99 Oximetry Mental Status: Alert & Oriented x3 Neuro: WNL Heart: WNL Lungs: WNL GI: WNL - Impression Impression: 46 y/o F w/ symptomatic cholelithiasis Pt. Evaluated Today:Candidate for Anesthesia & Procedure: Yes - Date & Time Date: 07/30/17 Short Stay Discharge - Short Stay Discharge Admitting Diagnosis/Reason for Visit: K86.10 Disposition: HOME/ ROUTINE Medications: oxyCODONE/Acetaminophen [Percocet 5/325 mg Tab] 1 tab PO Q4 PRN #20 tab PRN Reason: Pain, Moderate (4-7) Referrals: Gomez Sheth MD [Primary Care Provider] - Lamar Hodge MD [Staff Provider] - Follow-up: Follow up w/ Dr. Hodge in clinic in 7-10 days Take all medication as prescribed Pt may take over the counter pain medication No heavy lifting [id number] Pt may shower Do not soak or scrub incisions No pools, tubs, baths Pt may change outer bandages as needed Leave white steristrips in place, they will fall off on their own Call Dr. Hodge &/or return to the ED if Fever >100.4, pain, redness, drainage or rupture of incisions Instructions: Care For Your Absorbable Stitches (DC), Laparoscopic Cholecystectomy (DC) Additional Instructions (Diet, Activity): Regular diet
[2017-07-30] MEDS ORDERED: HYDROmorphone 0.5 mg/0.5 ml ISec IVP PRN (12:57)
[2017-07-30] MEDS ORDERED: Lactated Ringer's 1,000 ML IV SCH (13:00)
[2017-07-30] MEDS ORDERED: Oxycodone/Acetaminophen 5/325 mg Tab PO ONE ×2 (14:45→18:45)
[2017-07-31] MEDS: Oxycodone/Acetaminophen 5/325 mg Tab PO PRN ×3 (02:57→14:12)
[2017-07-31 05:58] LABS: BASO % 0.3 % (0.0-2.0); EOS # 0.1 K/uL (0.0-0.7); EOS % 0.7 % (0.0-4.0); HEMOGLOBIN 11.3 g/dL (12.0-16.0); LYMPH # 2.1 K/uL (1.0-4.3); LYMPH % 26.2 % (20.0-40.0); MEAN CELL VOLUME 89.6 fl (81.0-99.0); MEAN CORPUSCULAR HEMOGLOBIN 29.9 pg (27.0-31.0); MEAN CORPUSCULAR HGB CONC 33.4 g/dL (33.0-37.0); MEAN PLATELET VOLUME 8.2 fl (7.2-11.7); MONO # 0.6 K/uL (0.0-0.8); MONO % 8.1 % (0.0-10.0); NEUT # 5.1 K/uL (1.8-7.0); NEUT % 64.7 % (50.0-75.0); RBC 3.8 Mil/uL (3.80-5.20); WHITE BLOOD COUNT 7.9 K/uL (4.8-10.8)
[2017-07-31 06:04] LABS: ALB/GLOB RATIO 1.2 (1.0-2.1); ALBUMIN 3.6 g/dL (3.5-5.0); ALT/SGPT 74 U/L (9-52); AST/SGOT 86 U/L (14-36); BLOOD UREA NITROGEN 4 mg/dl (7-17); CALCIUM 8.8 mg/dL (8.4-10.2); GFR AFRICAN-AMERICAN > 60; GFR NON-AFRICAN AMERICAN > 60
[2017-07-31] MEDS ORDERED: Lactated Ringer's 1,000 ML IV SCH (07:00)
--- NOTE | 2017-07-31 07:52 | CP.PCM.PN ---
Subjective - Date & Time of Evaluation Date of Evaluation: 07/31/17 Time of Evaluation: 07:50 - Subjective Subjective: Gen Sx: Dr Hodge Pt S&E. Remains slightly dizzy. States she has epigastric pain. Denies n/v, f /c. Has not yet eaten. Was refusing IV overnight. Agrees to IV and fluids now. Objective - Vital Signs/Intake and Output Vital Signs (last 24 hours): Temp Pulse Resp BP Pulse Ox 98.4 F 69 19 93/55 L 95 07/31/17 04:00 07/31/17 04:00 07/31/17 04:00 07/31/17 04:00 07/31/17 04:00 - Medications Medications: Current Medications Acetaminophen (Tylenol 325mg Tab) 650 mg PO Q4 PRN PRN Reason: pain Hydromorphone HCl (Dilaudid) 0.5 mg IVP Q6 PRN PRN Reason: Pain, severe (8-10) Lactated Ringer's (Lactated Ringer's) 1,000 mls @ 100 mls/hr IV .Q10H ALEJANDRO Lactated Ringer's (Lactated Ringer's) 1,000 mls @ 999 mls/hr IV .Q1H1M ALEJANDRO Ondansetron HCl (Zofran Inj) 4 mg IVP Q6 PRN PRN Reason: Nausea/Vomiting Oxycodone/Acetaminophen (Percocet 5/325 Mg Tab) 1 tab PO Q4 PRN PRN Reason: Pain, moderate (4-7) Stop: 08/02/17 21:06 Last Admin: 07/31/17 02:57 Dose: 1 tab Pantoprazole Sodium (Protonix Ec Tab) 40 mg PO DAILY ALEJANDRO - Labs Labs: 07/31/17 05:40 07/31/17 05:40 - Constitutional Appears: Non-toxic, No Acute Distress - ENT Exam ENT Exam: Mucous Membranes Dry - Respiratory Exam Respiratory Exam: absent: Accessory Muscle Use, Respiratory Distress - Cardiovascular Exam Cardiovascular Exam: REGULAR RHYTHM. absent: Tachycardia - GI/Abdominal Exam GI & Abdominal Exam: Soft, Tenderness (post-op and appropriate). absent: Distended - Neurological Exam Neurological Exam: Alert, Awake Assessment and Plan - Assessment and Plan (Free Text) Assessment: 46F POD#1 s/p cholecystectomy Plan: pt is dehydrated IV placed bolus 1L LR IV fluids to follow regular diet possible d/c this afternoon will d/w Dr Naveen Marsh, PGY3
[2017-07-31] MEDS ORDERED: Pantoprazole 40 mg EC Tab PO SCH (09:00)
[2017-07-31 09:10] VITALS: O2SAT 98
--- NOTE | 2017-07-31 10:36 | OP ---
PROCEDURE DATE: 07/30/2017 SURGEON: Lamar Hodge MD WINDOWS SERVER ARCHITECT: Dr. Victoria and Dr. Nunes. ANESTHESIA: General. ANESTHESIOLOGIST: Yuriy Contreras MD PREOPERATIVE DIAGNOSES: Cholelithiasis and chronic cholecystitis. POSTOPERATIVE DIAGNOSES: Cholelithiasis and chronic cholecystitis. PROCEDURE: Laparoscopic cholecystectomy. DESCRIPTION OF THE OPERATION: With the patient in the supine position under adequate general anesthesia, the abdomen was prepped and draped in the usual sterile manner. Veress needle puncture was performed at the umbilicus with insufflation to 15 cm water pressure of CO2 and a 10 mm laparoscopic trocar was inserted via an infraumbilical incision. Under direct vision, additional trocars were inserted in the epigastrium and right costal margin. The gallbladder was visualized, it was not acutely inflamed. The fundus was grasped and elevated and the infundibulum was grasped and retracted laterally. Omental adhesions consistent with previous inflammation were taken down to expose the infundibulum and the cystic artery was identified. The cystic artery was cleared down towards the junction of the common bile duct. The cystic artery was also identified and dissected and those structures were viewed anteriorly and posteriorly. The cystic duct was then triply clipped and divided, the cystic artery was also triply clipped and divided and the gall bladder was dissected free of the liver bed using electrocautery. There was noted to be a moderately large stone which appeared somewhat impacted just above the infundibular area. The liver bed was inspected for hemostasis and the dissection was completed. The gallbladder was placed in a specimen retrieval bag and removed via the umbilical port site. Right upper quadrant was irrigated and suctioned. The pneumoperitoneum was released and the trocars were removed. The umbilical port site was closed with a [id number] fascial suture of 0 Vicryl. All incisions were closed with 4-0 Monocryl subcuticular sutures and Steri-Strips. Dry sterile dressings were applied. The patient tolerated the procedure well and transferred to recovery room in stable condition. Estimated blood loss for the procedure was 20 mL. Lamar Hodge MD
--- NOTE | 2017-07-31 13:49 | CP.PCM.DIS ---
Provider - Provider Date of Admission: 07/30/17 20:26 Attending physician: Lamar Hodge MD Primary care physician: Gomez Sheth MD Time Spent in preparation of Discharge (in minutes): 10 Hospital Course - Lab Results Lab Results: Most Recent Lab Values WBC 7.9 K/uL (4.8-10.8) D 07/31/17 05:40 RBC 3.80 Mil/uL (3.80-5.20) 07/31/17 05:40 Hgb 11.3 g/dL (12.0-16.0) L 07/31/17 05:40 Hct 34.0 % (34.0-47.0) 07/31/17 05:40 MCV 89.6 fl (81.0-99.0) 07/31/17 05:40 MCH 29.9 pg (27.0-31.0) 07/31/17 05:40 MCHC 33.4 g/dL (33.0-37.0) 07/31/17 05:40 RDW 13.0 % (11.5-14.5) 07/31/17 05:40 Plt Count 206 K/uL (130-400) 07/31/17 05:40 MPV 8.2 fl (7.2-11.7) 07/31/17 05:40 Neut % (Auto) 64.7 % (50.0-75.0) 07/31/17 05:40 Lymph % (Auto) 26.2 % (20.0-40.0) 07/31/17 05:40 Bell % (Auto) 8.1 % (0.0-10.0) 07/31/17 05:40 Eos % (Auto) 0.7 % (0.0-4.0) 07/31/17 05:40 Baso % (Auto) 0.3 % (0.0-2.0) 07/31/17 05:40 Neut # (Auto) 5.1 K/uL (1.8-7.0) 07/31/17 05:40 Lymph # (Auto) 2.1 K/uL (1.0-4.3) 07/31/17 05:40 Bell # (Auto) 0.6 K/uL (0.0-0.8) 07/31/17 05:40 Eos # (Auto) 0.1 K/uL (0.0-0.7) 07/31/17 05:40 Baso # (Auto) 0.0 K/uL (0.0-0.2) 07/31/17 05:40 Sodium 140 mmol/l (132-148) 07/31/17 05:40 Potassium 3.6 MMOL/L (3.6-5.0) 07/31/17 05:40 Chloride 104 mmol/L (98-107) 07/31/17 05:40 Carbon Dioxide 29 mmol/L (22-30) 07/31/17 05:40 Anion Gap 11 (10-20) 07/31/17 05:40 BUN 4 mg/dl (7-17) L 07/31/17 05:40 Creatinine 0.6 mg/dl (0.7-1.2) L 07/31/17 05:40 Est GFR ( Amer) > 60 07/31/17 05:40 Est GFR (Non-Af Amer) > 60 07/31/17 05:40 Random Glucose 95 mg/dL (65-105) 07/31/17 05:40 Calcium 8.8 mg/dL (8.4-10.2) 07/31/17 05:40 Total Bilirubin 0.9 mg/dl (0.2-1.3) 07/31/17 05:40 AST 86 U/L (14-36) H D 07/31/17 05:40 ALT 74 U/L (9-52) H 07/31/17 05:40 Alkaline Phosphatase 58 U/L (38-126) 07/31/17 05:40 Total Protein 6.8 G/DL (6.3-8.2) 07/31/17 05:40 Albumin 3.6 g/dL (3.5-5.0) 07/31/17 05:40 Globulin 3.1 gm/dL (2.2-3.9) 07/31/17 05:40 Albumin/Globulin Ratio 1.2 (1.0-2.1) 07/31/17 05:40 - Hospital Course Hospital Course: 46F admitted via SDS s/p laparoscopic cholecystectomy. PT was kept overnight because she felt dizzy. PT rehydrated. D/C today feeling much better, pain controlled, tolerating diet, no further dizziness. f/u next week in clinic Discharge Plan - Discharge Medications Prescriptions: oxyCODONE/Acetaminophen [Percocet 5/325 mg Tab] 1 tab PO Q4 PRN #20 tab PRN Reason: Pain, Moderate (4-7) - Follow Up Plan Condition: GOOD Disposition: HOME/ ROUTINE Instructions: Laparoscopic Cholecystectomy (DC), Care For Your Absorbable Stitches (DC) Additional Instructions: Regular diet Referrals: Lamar Hodge MD [Staff Provider] - Gomez Sheth MD [Primary Care Provider] -
[2017-07-31 16:08] VITALS: BP 104/68; PULSE 76; RESP 18; TEMP 98.7
== END 2017-07-31 16:00 | disposition home or self-care (01) ==
LOC: H.OPSURG 08:50 → H.MEDSURG1 20:26
PROVIDERS: ADMIT Specialist; ATTEND Specialist
DX: K80.10 Calculus of gallbladder with chronic cholecystitis without obstruction (principal); K66.0 Peritoneal adhesions (postprocedural) (postinfection); R42 Dizziness and giddiness; E86.0 Dehydration; K29.70 Gastritis, unspecified, without bleeding
CPT/HCPCS: 36415; 47562; 80053; 85025; 88304; G0378; J0330; J0690; J1170; J2250; J2405; J3010; J7120

== ENCOUNTER 2017-08-06 18:05 | Emergency (ER) | payer SELFPAY ==
[2017-08-06 18:05] VITALS: BMI 26.3
[2017-08-06 18:35] VITALS: PULSE 73
[2017-08-06] MEDS ORDERED: Morphine 4 MG/ML VIAL IVP STA (19:01)
[2017-08-06] MEDS ORDERED: Morphine 4 MG/ML VIAL ONE (19:22)
[2017-08-06 19:43] LABS: BASO % 0.4 % (0.0-2.0); EOS # 0.1 K/uL (0.0-0.7); HEMOGLOBIN 12.3 g/dL (12.0-16.0); LYMPH # 2.1 K/uL (1.0-4.3); LYMPH % 31.3 % (20.0-40.0); MEAN CELL VOLUME 88.2 fl (81.0-99.0); MEAN CORPUSCULAR HEMOGLOBIN 30.6 pg (27.0-31.0); MEAN CORPUSCULAR HGB CONC 34.7 g/dL (33.0-37.0); MEAN PLATELET VOLUME 8.2 fl (7.2-11.7); MONO # 0.4 K/uL (0.0-0.8); MONO % 6.5 % (0.0-10.0); NEUT % 59.8 % (50.0-75.0); NRBC % 0.1 % (0.0-0.0); RBC 4.04 Mil/uL (3.80-5.20); RED CELL DISTRIBUTION WIDTH 12.9 % (11.5-14.5); WHITE BLOOD COUNT 6.6 K/uL (4.8-10.8)
[2017-08-06 19:55] LABS: PROTHROMBIN TIME 13.1 Seconds (9.8-13.1)
[2017-08-06 19:56] LABS: INR 1.2 (0.9-1.2); PARTIAL THROMBOPLASTIN TIME 29.2 Seconds (25.6-37.1)
--- NOTE | 2017-08-06 20:14 | ED PDOC ---
HPI: Abdomen Time Seen by Provider: 08/06/17 18:36 Chief Complaint (Nursing): Abdominal Pain Chief Complaint (Provider): Abdominal Pain History Per: Patient History/Exam Limitations: no limitations Additional Complaint(s): 46 y/o female presents to the ED for abdominal pain since Jul 30 after undergoing a lap zay for gall stones. Patient went to the clinic today and sent here for further evaluation. The pain localized to umbilical area and radiates to the back. Pain is constant and worsening with onset and is associated with constipation. Reports that she had only one bowel movement since surgery. Patient has taken no medications at home. Denies fever, vomiting , cough, urinary symptoms, loss of appetite or any further medical complaints. PMD: Gomez Sheth MD Past Medical History Reviewed: Historical Data, Nursing Documentation, Vital Signs Vital Signs: Last Vital Signs Temp 97.9 F 08/06/17 18:32 Pulse 73 08/06/17 18:32 Resp 18 08/06/17 18:32 BP 113/77 08/06/17 18:32 Pulse Ox 99 08/06/17 20:17 - Medical History PMH: Anxiety, Depression, Gastritis, Gall Bladder Disease (gallstones), Pneumonia Denies: Diabetes, Hepatitis, HIV, HTN, Chronic Kidney Disease, Seizures, Sexually Transmitted Disease - Surgical History Surgical History: Cholecystectomy - Family History Family History: States: Unknown Family Hx - Social History Current smoker - smoking cessation education provided: No Alcohol: None Drugs: Denies - Home Medications Home Medications: Ambulatory Orders Medication Instructions Recorded Mirtazapine [Remeron] 15 mg PO HS 07/30/17 oxyCODONE/Acetaminophen [Percocet 1 tab PO Q4 PRN #20 tab 07/30/17 5/325 mg Tab] Naproxen [Naprosyn] 1 tab PO BID PRN #30 tab 08/06/17 - Allergies Allergies/Adverse Reactions: Allergies Allergy/AdvReac Type Severity Reaction Status Date / Time No Known Allergies Allergy Verified 08/06/17 18:31 Review of Systems ROS Statement: Except As Marked, All Systems Reviewed And Found Negative (As per HPI,otherwise negative) Constitutional: Negative for: Fever, Other (loss of appetite) Respiratory: Negative for: Cough Gastrointestinal: Positive for: Abdominal Pain, Constipation. Negative for: Vomiting Genitourinary Female: Negative for: Dysuria, Frequency, Incontinence, Hematuria Musculoskeletal: Positive for: Back Pain - Laboratory Results Result Diagrams: 08/06/17 19:39 08/06/17 19:39 - ECG O2 Sat by Pulse Oximetry: 99 (RA) Pulse Ox Interpretation: Normal Medical Decision Making Medical Decision Making: Time: 19:02 Initial Impression: post-surgical abdominal pain Plan: CT Abdomen & Pelvis Amylase CMP Lactic acid, Plasma LDH Lipase Urine dipstick Urine Morphine 2mg IVP Blood culture IV insertion (saline lock) Scribe Attestation: Documented by Chemo Garcia acting as a scribe for Becki Mahoney MD. Scribe Attestation: All medical record entries made by the Scribe were at my direction and personally dictated by me. I have reviewed the chart and agree that the record accurately reflects my personal performance of the history, physical exam, medical decision making, and the department course for this patient. I have also personally directed, reviewed, and agree with the discharge instructions and disposition. Disposition - Clinical Impression Clinical Impression: Sciatica of right side, Ovarian cyst rupture - Disposition Referrals: [facility] [Outside] - 08/13/17 Disposition: Routine/Home Disposition Time: 23:57 Condition: IMPROVED Additional Instructions: Visita jaron diaz Prescriptions: Naproxen [Naprosyn] 1 tab PO BID PRN #30 tab PRN Reason: Pain Instructions: Sciatica (ED), Ovarian Cyst (ED), Pain Management After Surgery ( GEN) Print Language: MOLDOVAN
[2017-08-06 20:38] LABS: ALB/GLOB RATIO 1.1 (1.0-2.1); ALBUMIN 4.5 g/dL (3.5-5.0); ALT/SGPT 55 U/L (9-52); AMYLASE 95 U/L (30-110); AST/SGOT 33 U/L (14-36); BLOOD UREA NITROGEN 7 mg/dl (7-17); CALCIUM 9.7 mg/dL (8.4-10.2); GFR AFRICAN-AMERICAN > 60; GFR NON-AFRICAN AMERICAN > 60; LIPASE 118 U/L (23-300)
[2017-08-06] MEDS ORDERED: Iohexol 300 100 ML IJ ONE (21:07)
[2017-08-06] MEDS ORDERED: Sodium Chloride 0.9% 50 ML IV ONE (21:08)
--- NOTE | 2017-08-06 21:51 | CT ---
EXAM: CT Abdomen and Pelvis With Intravenous Contrast CLINICAL HISTORY: 46 years old, female; Pain; Abdominal pain; Other: Post surgical pain; Prior surgery; Surgery date: 3-7 days post-operative; Surgery type: Gb removed; Additional info: Post surgical pain. Sent phy. Doc. TECHNIQUE: Axial computed tomography images of the abdomen and pelvis with intravenous contrast. All CT scans at this facility use one or more dose reduction techniques, viz.: automated exposure control; ma/kV adjustment per patient size (including targeted exams where dose is matched to indication; i.e. head); or iterative reconstruction technique. Coronal and sagittal reformatted images were created and reviewed. CONTRAST: 90 mL of [id number] administered intravenously. COMPARISON: CT - ABD PELVIS W/O PO OR IV CONT 2015-08-25 04:52 FINDINGS: Lower thorax: Subcentimeter subpleural nodule vs focal scarring left lower lobe. ABDOMEN: Liver: Unremarkable. No mass. Gallbladder and bile ducts: Cholecystectomy. No significant ductal dilation. Mild stranding within gallbladder fossa without discrete peripherally enhancing collection. Pancreas: No ductal dilation. No mass. Spleen: No splenomegaly. Adrenals: No mass. Kidneys and ureters: No mass. No hydronephrosis. Stomach and bowel: No definite mural thickening. No obstruction. Appendix: Normal caliber. No inflammation. PELVIS: Bladder: Unremarkable. Reproductive: 1.5 x 1.3 x 1.4 cm peripherally enhancing hypodensity with crenulated margins within RIGHT ovary. ABDOMEN and PELVIS: Intraperitoneal space: No significant fluid collection. Few foci of extraluminal air within upper abdomen. Bones/joints: Fusion anomaly of lower lumbar spine. No acute fracture. Soft tissues: Mild soft tissue thickening/small focus of air along the umbilicus. Vasculature: Unremarkable. No aneurysm. Lymph nodes: No pathologically enlarged lymph nodes. Other findings: Surgical clips within pelvis. IMPRESSION: 1. S/P cholecystectomy with postsurgical changes. 2. Pneumoperitoneum, likely related to recent surgery. 3. Involuting or ruptured RIGHT ovarian follicle/cyst. 4. Incidental/non-acute findings are described above.
[2017-08-07 00:10] VITALS: BP 123/74; RESP 15; TEMP 98.5
[2017-08-07 00:13] VITALS: O2SAT 99
== END 2017-08-07 00:11 | disposition home or self-care (01) ==
LOC: H.ER 18:05
DX: M54.31 Sciatica, right side (principal); N83.209 Unspecified ovarian cyst, unspecified side; Z90.49 Acquired absence of other specified parts of digestive tract; Z86.59 Personal history of other mental and behavioral disorders
CPT/HCPCS: 74177; 80053; 81025; 82150; 83605; 83615; 83690; 85025; 85610; 85730; 87040; 96374; 99283; J2270; Q9967

== ENCOUNTER 2018-09-06 11:42 | Emergency (ER) | payer SELFPAY ==
[2018-09-06 11:43] VITALS: BMI 26.3
[2018-09-06 12:06] VITALS: BP 110/73; PULSE 73; RESP 16; TEMP 98.2; O2SAT 96
[2018-09-06] MEDS ORDERED: Hydrogen Peroxide 3% Soln (480ml) TP STA (12:39)
--- NOTE | 2018-09-06 13:21 | ED PDOC ---
HPI: CCC, URI, Sore Throat Time Seen by Provider: 09/06/18 12:15 Chief Complaint (Nursing): ENT Problem Chief Complaint (Provider): Right ear pain History Per: Patient History/Exam Limitations: no limitations Additional Complaint(s): 47 y/o F with hx of anxiety/depression who presents with Right sided ear pain. Pt states that she felt liquid coming from her ear 4 days ago and then began having Right sided ear pain 2 days ago. She noted Right sided mild facial swelling yesterday. She has not taken any medication for it. Denies fever, chills, night sweats, N/V, diarrhea, sore throat, toothache. Past Medical History Reviewed: Historical Data, Nursing Documentation, Vital Signs Vital Signs: Last Vital Signs Temp 98.2 F 09/06/18 12:02 Pulse 73 09/06/18 12:02 Resp 16 09/06/18 12:02 BP 110/73 09/06/18 12:02 Pulse Ox 96 09/06/18 12:02 - Medical History PMH: Anxiety, Depression, Gastritis, Gall Bladder Disease (gallstones), Pneumonia Denies: Diabetes, Hepatitis, HIV, HTN, Chronic Kidney Disease, Seizures, Sexually Transmitted Disease - Surgical History Surgical History: Cholecystectomy - Family History Family History: States: Unknown Family Hx - Home Medications Home Medications: Ambulatory Orders Medication Instructions Recorded Mirtazapine [Remeron] 15 mg PO HS 07/30/17 oxyCODONE/Acetaminophen [Percocet 1 tab PO Q4 PRN #20 tab 07/30/17 5/325 mg Tab] Naproxen [Naprosyn] 1 tab PO BID PRN #30 tab 08/06/17 Ibuprofen [Motrin Tab] 600 mg PO Q6 PRN 7 Days tab 09/06/18 Neomycin/Polymyxin B/Hydrocort 4 drop OT QID 7 Days drops.susp 09/06/18 [Rhyjxhlt-Lksxnlrsv-Qd Ear Susp] - Allergies Allergies/Adverse Reactions: Allergies Allergy/AdvReac Type Severity Reaction Status Date / Time No Known Allergies Allergy Verified 09/06/18 12:02 Review of Systems Constitutional: Negative for: Fever, Chills ENT: Positive for: Ear Pain, Ear Discharge, Other (right sided facial swelling). Negative for: Nose Pain, Nose Discharge, Nose Congestion, Mouth Pain, Mouth Swelling Physical Exam - Reviewed Nursing Documentation Reviewed: Yes Vital Signs Reviewed: Yes - Physical Exam Appears: Positive for: Uncomfortable ENT: Positive for: TM Is/Are (occluded by cerumen B/L. Mild tenderness on palpation of tragus. ), Other (mild pain on palpation of right tragus. Right sided mild facial swelling. No gum swelling on mandible or maxilla on right. No mastoid tenderness on palpation.). Negative for: Nasal Congestion, Pharyngeal Erythema Neck: Positive for: Normal Neurological/Psych: Positive for: Awake, Alert, Oriented - ECG O2 Sat by Pulse Oximetry: 96 Medical Decision Making Medical Decision Making: Several drops of hydrogen peroxide placed in B/L ears to soften hard cerumen. Right sided ear canal erythematous and swollen upon re-examination. Left canal - no erythema. TMs continued to be occluded B/L despite softening and attempt to remove cerumen with ear wick. Pt advised to continue to use hydrogen peroxide drops to soften cerumen as it can lead to infection. She will be discharged with antibiotic otic drops for Right ear and advised to follow up with her PMD if pain continues. Disposition - Clinical Impression Clinical Impression: Cerumen impaction, Otitis externa - Patient ED Disposition Is Patient to be Admitted: No Counseled Patient/Family Regarding: Diagnosis, Need For Followup, Rx Given - Disposition Referrals: Cinthya La MD [Resident] - Disposition: Routine/Home Disposition Time: 13:40 Condition: STABLE Additional Instructions: Continue to use hydrogen peroxide drops in both ears to soften ear wax as needed. Then use antibiotic ear drops as prescribed. Follow up with your primary care doctor if pain continues despite antibiotic ear drop use and pain meds. Use Ibuprofen or Tylenol for ear pain. Return to ER if facial swelling worsens or you develop fevers. Prescriptions: Ibuprofen [Motrin Tab] 600 mg PO Q6 PRN 7 Days tab PRN Reason: Pain, Moderate (4-7) Neomycin/Polymyxin B/Hydrocort [Kwxdsvhv-Gdhdojjms-Ur Ear Susp] 4 drop OT QID 7 Days drops.susp Instructions: Ear Wax Impaction (DC), Outer Ear Infection (DC) Forms: [employer] (Iranian) Print Language: [place]OUTH K[place]
== END 2018-09-06 13:54 | disposition home or self-care (01) ==
LOC: H.ER 11:42
DX: R51 Headache (principal)